=== PATIENT | female | born 1950 | race Caucasian/White ===

== ENCOUNTER 2017-01-19 20:46 | Observation (INO) | payer OTHER ==
--- NOTE | ~2017-01-19 | HP ---
Unit #: [id number] #: [id number] Patient: GINGER GALLAGHER [id number] [address] [address] [id number] I MR#: [id number] NAME: GINGER GALLAGHER. ROOM: 302 Age: 66 Sex: F Admission Date: 01/20/2017 : 1950 Attending Physician: Hemant Dennis M.D. Primary Care Physician: No Primary Care Physician HISTORY AND PHYSICAL CHIEF COMPLAINT Shortness of breath, palpitation. DISCUSSION This is a 66-year-old female with history of hypertension in the past, history of dyslipidemia, acid reflux, anxiety, history of alcohol and tobacco abuse. She presented to the emergency room with chief complaint of having shortness of breath, palpitation. Heart rate on arrival was 120. EKG shows sinus tachycardia. She denied chest pain. She said she feels like it is just shortness of breath. She denies fever, chills, cough, or any other complaint. PAST MEDICAL HISTORY 1. History of dyslipidemia. 2. Anxiety. 3. GERD. 4. History of hypertension. 5. Alcohol and tobacco abuse. PAST SURGICAL HISTORY 1. History of hysterectomy. 2. Tonsillectomy. 3. History of vocal cord polypectomy. 4. Colonoscopy in the past. SOCIAL HISTORY She smokes one pack daily. She drinks alcohol. She says when she drinks she drinks too much. History of binge drinking. FAMILY HISTORY Noncontributory. MEDICATION FROM HOME 1. Simvastatin 40 mg daily. 2. Prilosec 20 mg twice daily. 3. Vitamin D 50,000 units weekly. REVIEW OF SYSTEMS Negative except for history of present illness. PHYSICAL EXAMINATION GENERAL APPEARANCE: A middle-aged female lying in the bed comfortably, currently, not in any distress. She is alert, awake, oriented x3, comfortable, not in any distress. Unit #: [id number] #: [id number] Patient: GINGER GALLAGHER CURRENT VITAL SIGNS: Temperature 98.1. Heart rate 120. Respiratory rate 21. Blood pressure 147/84. Oxygen 97% on room air. HEENT: Pupils equal, reactive to light and accommodation. Head is normocephalic, atraumatic. NECK: Supple. No JVD. HEART: S1, S2. Regular rate and rhythm. Tachycardiac. LUNGS: Bilateral rhonchi. ABDOMEN: Soft, nontender, nondistended. Bowel sounds positive. EXTREMITIES: Inspection normal. No cyanosis. No clubbing. No edema. NEUROLOGIC: No focal neurologic deficit. DIAGNOSTIC STUDIES LABORATORY: Alcohol level 236. Troponin less than 0.05. BNP 11. INR is one. D-dimer 201. BMP: Sodium 140, chloride 105,CO2 18, glucose 119, BUN 9, creatinine 0.7. LFTs: AST 43, albumin 4.4. CBC: White count 9, hemoglobin 13, hematocrit 40, platelets 256. Troponin less than 0.0. IMAGING: Chest x-ray negative. ASSESSMENT AND PLAN 1. Alcohol intoxication. We will admit the patient, monitor, follow for withdrawals. 2. Sinus tachycardia. IV fluids. Get TSH and cardiac enzymes in the morning. 3. Reactive airway disease with tobacco abuse. Given nebulizer. 4. History of dyslipidemia. 5. Anxiety. 6. GERD. 7. Tobacco and alcohol abuse. 8. GI and DVT prophylaxis. We will place the patient on Protonix and Lovenox. 1. Dictated by Peter Gracia TD: 01/20/2017 06:37 JOB #: [id number] HISTORY AND PHYSICAL Page 1 of 1 X X HISTORY AND PHYSICAL
--- NOTE | ~2017-01-19 | DS ---
Unit #: [id number] #: [id number] Patient: GINGER GALLAGHER [id number] [address] [place], [place] [address] [id number] I MR#: [id number] NAME: GINGER GALLAGHER. ROOM: 302 Age: 66 Sex: F Admission Date: 01/19/2017 : 1950 Discharge Date: 01/20/2017 Attending Physician: Jessica Do M.D. Primary Care Physician: No Primary Care Physician DISCHARGE SUMMARY DISCHARGE DIAGNOSES 1. Alcohol intoxication and withdrawal. 2. Sinus tachycardia. Thyroid stimulating hormone was within normal limits, slightly low at 0.35 but free T4 was within normal limits, 0.75, likely not to be causing her sinus tachycardia. 3. Reactive airway disease, as well as tobacco usage. The patient has been stable on room air and with no respiratory distress. 4. History of dyslipidemia, continue with statin therapy. 5. History of anxiety and depression. 6. Gastroesophageal reflux disease. CONSULTANTS None. PROCEDURES None. IMAGING Chest x-ray on 01/19/2017, Impression: No acute findings and no active disease. LABS Today's labs include BNP, glucose 102, BUN 9, creatinine 0.6, sodium 138, potassium 4.2, chloride 105, CO2 18, calcium 9.1, magnesium 1.7, total protein 7.5, albumin 4.4, total bilirubin 1.2, AST 43, ALT 26, alk phos 63. Please note that cardiac enzymes were undetectable. TSH was 0.35, free T4 0.75. The patient had an alcohol level of 236 on admission. CBC with WBC of 9.5, rbc's 4.41, hemoglobin 13.9, hematocrit 40.9, MCV 92.7, MCH 31.5, MCHC 33.9, RDW 15.5, platelets of 256, MVV 7.7. HOSPITAL COURSE Patient is a 66-year-old pleasant female with a past medical history of hypothyroidism, dyslipidemia, anxiety, GERD, alcohol and tobacco abuse who presents to the emergency department with symptoms of palpitations, shortness of breath, similar to symptoms that she experienced in the past with alcohol withdrawal. Her (1) initially was in the 120s. Patient was not nauseous and not vomiting and she states that she normally does that with alcohol withdrawal. Alcohol level was significantly high when assessed in the emergency department at 2:36. The patient was admitted under observation. 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 Denied dyspnea. Denied chest pain and stated that she actually feels better than she normally does when she goes through alcohol withdrawal. The patient is anxious to go home. States that she wanted to be home with Unit #: [id number] #: [id number] Patient: GINGER GALLAGHER her two dogs who really needed her. When asked why patient drinks, she states that she just likes the taste of alcohol and likes the feeling of being drunk. He patient denies any depression that is causing her drinking. She tells me that with the palpitations, the increased heart rate, this is an awakening for her and she swears to not drink again. She tells me that she does not drink on a daily basis, that she binge drinks and when she does, she goes on for days with just drinking. She states that she eventually had been clean for a year but started drinking again just recently. At this time patient is stable. DISCHARGE MEDICATIONS She will be discharged home with continued medicine of: 1. Librium 25 mg orally every 6 hours for seven days. A prescription was given. 2. Folic acid 1 mg orally daily. 3. Thiamine 100 mg orally daily. 4. Symbicort 160 mcg two puffs inhaled twice daily. These prescriptions were all given. 5. Simvastatin 40 mg orally at bedtime. 6. Prilosec 20 mg orally twice daily. FOLLOWUP I have made an appointment for patient to follow up with [facility] clinic next at 9:30 am. In the event that she is able to get in contact with her family doctor, she will see her primary care physician instead. Dictated by... Jyoti Cote PA-C for Peter Dorantes/jagruti TD: 01/21/2017 08:19 JOB #: [id number] DISCHARGE SUMMARY Page 1 of 1 X X DISCHARGE SUMMARY
--- NOTE | ~2017-01-19 | CR72 ---
[facility] A Service of [facility] RADIOLOGY TEXT RESULTS PATIENT: GINGER GALLAGHER LOCATION: [facility] 302- : [birth year] UNIT #: [id number] AGE: [address]: Jessica Do MD SEX: F ORDER DR: [id number] [facility] [address] [place], [place] [address] [id number] I MR#: [id number] Acc #: [id number] NAME: GINGER GALLAGHER. : 1950 SEX: F STUDY DATE/TIME: 01/19/2017 22:03 UNIT: [address] ROOM: [facility] STUDY DESCRIPTION: CR Chest Single View Portable Attending Physician: Hemant Dennis M.D. Ordering Physician: Kimberly Sales M.D. Primary Care Physician: Primary Care Physician No MEDICAL IMAGING REPORT This report is preliminary unless electronic signature is present EXAM Portable chest HISTORY Shortness of air and tachycardia today. FINDINGS Two views of the chest demonstrate mild hyperinflation of both lungs. Cardiac size and pulmonary vascularity are normal. No infiltrates or effusions. IMPRESSION No acute findings and no active disease. Dictated by... Tomas Medellin M.D. THIS IS AN ELECTRONICALLY VERIFIED REPORT Tomas Medellin M.D. at 01/20/2017 5:29 PM DFL/bernarda TD: 01/20/2017 02:03 JOB #: [id number] MEDICAL IMAGING REPORT Page 1 of 1 COPY
--- NOTE | ~2017-01-19 | EKG ---
PATIENT: GINGER GALLAGHER UNIT #: [id number] Ventricular Rate: 118 BPM Atrial Rate: 118 BPM P-R Interval: 150 ms QRS Duration: 82 ms Q-T Interval: 344 ms QTC Calculation(Bezet): 482 ms P [place]: 67 degrees Calculated R [place]: 36 degrees Calculated T [place]: 43 degrees Diagnosis Line: Sinus tachycardia Diagnosis Line: Nonspecific ST abnormality Diagnosis Line: Abnormal ECG Diagnosis Line: When compared with ECG of 19-JAN-2017 21:45, Diagnosis Line: (unconfirmed) Diagnosis Line: No significant change was found Diagnosis Line: Confirmed by JALIL GROVES MD ([id number]) on 01/21/2017 Diagnosis Line: 6:28:47 PM INTERPRETING MD: YANELI MALDONADO
--- NOTE | ~2017-01-19 | EKG ---
PATIENT: GINGER GALLAGHER UNIT #: [id number] Ventricular Rate: 111 BPM Atrial Rate: 111 BPM P-R Interval: 148 ms QRS Duration: 82 ms Q-T Interval: 338 ms QTC Calculation(Bezet): 459 ms P [place]: 67 degrees Calculated R [place]: 41 degrees Calculated T [place]: 38 degrees Diagnosis Line: Sinus tachycardia Diagnosis Line: Otherwise normal ECG Diagnosis Line: No previous ECGs available Diagnosis Line: Confirmed by JALIL GROVES MD ([id number]) on 01/21/2017 Diagnosis Line: 6:24:56 PM INTERPRETING MD: YANELI MALDONADO
[~2017-01-19 20:46] MED LIST: ARTHROTEC 501 TAB.EC PO; EFFEXOR XR PO; INDOMETHACIN75 MG PO; LEXAPRO; LISINOPRIL PO; NEXIUM; NEXIUM PO; PRILOSEC20 M1 PO; ROBAXIN PO; SIMVASTATIN40 MG PO; SINGULAIR; SINGULAIR PO; TYLOX 5/500 CAP1 CAP PO; VICODIN 5/500 T1 TAB PO; VITAMIN D250000 UNIT PO; ZOCOR PO; ZOLOFT PO
[2017-01-19 21:24] LABS: POC - CKMB 1.3 ng/mL (0.0-7.9); POC - TROPONIN <0.05 ng/mL (<=0.05)
[2017-01-19 21:38] LABS: BASOPHIL# 0.1 X10e3 (0-0.3); BASOPHIL% 0.7 % (0-2.5); EOSINOPHIL% 0.1 % (0.0-7.0); HEMATOCRIT 40.9 % (35.0-45.0); HEMOGLOBIN 13.9 gm/dL (12.0-16.0); LYMPHOCYTE# 1.8 X10e3 (1.0-3.5); LYMPHOCYTE% 18.9 % (17.0-45.0); MEAN CELL VOLUME 92.7 FL (83-96); MEAN CORPUSCULAR HEMOGLOBIN 31.5 PG (28-34); MEAN CORPUSCULAR HGB CONC 33.9 g/dL (30-36); MEAN PLATELET VOLUME 7.7 FL (6.5-11.5); MONOCYTE# 0.3 X10e3 (0-1.0); MONOCYTE% 3.6 % (3.0-12.0); NEUTROPHIL# 7.3 X10e3 (1.5-7.1); NEUTROPHIL% 76.7 % (40-75); PLATELET COUNT 256 X10e3 (140-420); RED BLOOD COUNT 4.41 X10e (3.90-5.30); RED CELL DISTRIBUTION WIDTH 15.5 % (11.0-15.5); WHITE BLOOD COUNT 9.5 X10e3 (4.0-10.5)
[2017-01-19 21:39] LABS: DIFF IND NO
[2017-01-19 22:01] LABS: PARTIAL THROMBOPLASTIN TIME 27.1 SECONDS (23.5-31.3); PROTHROMBIN TIME (PATIENT) 10.7 SECONDS (9.6-11.5)
[2017-01-19 22:07] LABS: ALBUMIN SERUM 4.4 g/dL (3.5-5.0); BILIRUBIN, DIRECT 0.1 mg/dL (0.0-0.2); BILIRUBIN,INDIRECT 1.1 mg/dL (0.0-0.9); BILIRUBIN,TOTAL 1.2 mg/dL (0.2-2.0); BUN/CREATININE RATIO 12.85; CALCIUM SERUM 8.6 mg/dL (8.4-10.2); CREATININE SERUM 0.7 mg/dL (0.6-1.4); GLOM FILT RATE Estimated 89.7 mL/min (>60); POTASSIUM 3.4 mmol/L (3.5-5.1); PROTEIN TOTAL SERUM 7.5 g/dL (6.0-8.3)
[2017-01-19 23:21] LABS: POC - TROPONIN <0.05 ng/mL (<=0.05)
[2017-01-20 08:43] LABS: CALCIUM SERUM 9.1 mg/dL (8.4-10.2); CREATININE SERUM 0.6 mg/dL (0.6-1.4); GLOM FILT RATE Estimated 94.3 mL/min (>60); MAGNESIUM 1.7 mg/dL (1.6-3.0); POTASSIUM 4.2 mmol/L (3.5-5.1)
[2017-01-20] MEDS ORDERED: SYMBICORT INH (17:56)
[2017-01-20] MEDS ORDERED: LIBRIUM25 MG PO (17:57)
[2017-01-20] MEDS ORDERED: FOLIC ACID1 MG PO (17:58)
[2017-01-20] MEDS ORDERED: THIAMINE HCL100 M1 PO (17:59)
== END 2017-01-20 18:49 | disposition home or self-care (01) ==
LOC: CED 20:46 → C3A PCU 23:55 → CEDOF 23:55 → CED 01-20 00:22 → C3A PCU 01-20 01:39 → CEDOF 01-20 01:39 → C3A PCU 01-20 01:39
PROVIDERS: Emergency Medicine; Internal Medicine
DX: F10.239 Alcohol dependence with withdrawal, unspecified (principal); F10.229 Alcohol dependence with intoxication, unspecified; R00.0 Tachycardia, unspecified; J45.909 Unspecified asthma, uncomplicated; E78.5 Hyperlipidemia, unspecified; F41.9 Anxiety disorder, unspecified; K21.9 Gastro-esophageal reflux disease without esophagitis; F17.200 Nicotine dependence, unspecified, uncomplicated; Z90.710 Acquired absence of both cervix and uterus
CPT/HCPCS: 36415; 71010; 80048; 80076; 82550; 82553; 83735; 83880; 84439; 84443; 84484; 85025; 85379; 85610; 85730; 93005; 94640; 94760; 96372; 96374; 96375; 99285; C9113; G0378; G0480; J1650; J2060; J2930; J3475